=== PATIENT | female | born 1985 | race Two or more races ===

== ENCOUNTER 2025-10-03 13:22 | Emergency (ER) | payer MEDICAID, SELFPAY ==
[2025-10-03 13:24] VITALS: BMI 35.9
[2025-10-03 13:35] VITALS: BP 170/99; PULSE 88; RESP 18; TEMP 36.9; O2SAT 98
--- NOTE | 2025-10-03 13:35 | XR_ITS ---
Examination: Complete OB ultrasound, less than 14 weeks, transabdominal Date and time of exam: October 03, 2025, 1357 hours INDICATIONS: Headaches today, diagnosis given by physician vaginal bleeding Technique: Obstetrical ultrasound images less than 14 weeks performed via transabdominal imaging Findings: Uterus 8.6 cm, intrauterine gestational sac 1.2 cm corresponds to 6 weeks 0 days gestational age No pole, no cardiac activity 9 x 5 x 8 mm subchorionic hemorrhage Right ovary 3.2 cm arterial flow Left ovary 2.7 cm arterial flow IMPRESSION: Empty intrauterine gestational sac corresponding to 6 weeks 0 days gestational age, no pole, no cardiac activity Recommend short-term follow-up pelvic sonography to exclude embryonic demise
--- NOTE | 2025-10-03 13:35 | EKG_ITS ---
[facility] Test Date: 2025-10-03 Pat Name: KAVIN GUADARRAMA Department: Room: - Gender: Female [employer] Manifest Clerk: : 1985 Requested By: Anival Gonzalez Order Number: [id number] Reading MD: Anival Gonzalez Measurements Intervals [place] Rate: 87 P: 53 SD: 126 QRS: 50 QRSD: 79 T: 45 QT: 363 QTc: 438 Interpretive Statements SINUS RHYTHM No previous ECG available for comparison /store/S0/[id number]/ecg/[id number].pdf
--- NOTE | 2025-10-03 13:36 | PD.EDRME ---
Rapid Medical Screening Exam RME Arrival date/time: 10/03/25 13:22 39-year-old female with a history of type 2 diabetes, hypertension presents to the emergency room with a chief complaint of palpitations, weakness. Patient was sent by her clinic for high blood pressure and high blood sugar readings I have greeted and performed a focused initial assessment of this patient. A comprehensive ED assessment and evaluation of the patient, analysis of all test results, and completion of the medical decision making process will be conducted by additional ED providers. Chief Complaint: General Adult/Misc Complain Time Seen by Provider: 10/03/25 13:31 Vital signs reviewed by provider: Yes Exam: Patient has tenderness to the lower abdominal area Patient has a strong and regular rhythm S1 and S2 noted Clinical Impression: Spontaneous /incomplete /vaginal bleeding/
[2025-10-03 14:12] LABS: Collection Type, Urine Clean Catch
[2025-10-03 14:18] LABS: Basophils # (Auto) 0.0 Thou/mm3 (0.0-0.2); Basophils % (Auto) 0 % (0-2.5); Eosinophils # (Auto) 0.1 Thou/mm3 (0.0-0.5); Eosinophils % (Auto) 1 % (0-10); Hematocrit 39.9 % (36.0-46.0); Hemoglobin 13.2 g/dL (12.0-16.0); Immature Granulocytes Auto 0.04 Thou/mm3 (0.00-0.00); Lymphocytes # (Auto) 1.6 Thou/mm3 (1.0-4.8); Lymphocytes % (Auto) 13 % (10-50); Mean Corpuscular HGB Conc 33.1 g/dl (31.0-37.0); Mean Corpuscular Hemoglobin 27.6 pg (25.0-35.0); Mean Corpuscular Volume 84 fL (80-100); Monocytes # (Auto) 0.7 Thou/mm3 (0.0-0.8); Monocytes % (Auto) 6 % (0-12); Neutrophils # (Auto) 9.4 Thou/mm3 (1.8-7.7); Neutrophils % (Auto) 80 % (37-80); Nucleated Red Blood Cell # 0.00 Thou/mm3 (0.00-0.00); Nucleated Red Blood Cell % 0 /100 WBC (0); Platelet Count 274 Thou/mm3 (140-440); RDW Standard Deviation 42.7 fL (36.4-46.3); Red Blood Count 4.78 Miln/mm3 (4.00-5.20); White Blood Count 11.7 Thou/mm3 (3.6-11.0)
[2025-10-03 14:22] LABS: Bilirubin,Urine Negative (Negative); Blood,Urine Negative (Negative); Clarity,Urine Clear (Clear/Hazy); Color,Urine Lt-Yellow (Lt Yel-Yel); Glucose, Urine 3+ (Negative); Ketones,Urine Negative (Negative); Leukocyte Esterase,Urine Negative (Negative); Nitrite,Urine Negative (Negative); PH,Urine 6.0 (5.0-7.0); Protein,Urine Negative (Neg - Trace); RBC,Urine 2 /hpf (0-3); Specific Gravity,Urine 1.017 (1.001-1.035); Squamous Epithelial Cell,Urine < 1 /hpf (0-5); Urobilinogen,Urine Negative mg/dL (0.0-1.0); WBC,Urine < 1 /hpf (0-5)
[2025-10-03 14:29] LABS: INR 1.0 (0.9-1.3); Partial Thromboplastin Time 27.3 Seconds (22.0-36.0); Prothrombin Time 10.6 Seconds (9.0-12.2)
[2025-10-03 14:38] LABS: Alanine Aminotransferase 47 U/L (10-49); Albumin, Serum 4.7 gm/dL (3.5-5.0); Albumin/Globulin Ratio 1.9 (1.2-2.2); Alkaline Phosphatase 55 U/L (46-116); Anion Gap 9 (7-16); Aspartate Amino Transferase 20 U/L (0-34); BUN/Creatinine Ratio 15 Ratio (12-20); Bilirubin,Total 0.7 mg/dL (0.3-1.2); Blood Urea Nitrogen 9 mg/dL (9-23); Calcium 9.3 mg/dL (8.3-10.6); Calcium (Corrected) 9.3 mg/dL (8.5-10.1); Carbon Dioxide 23.2 mMol/L (20.0-31.0); Chloride 102 mMol/L (98-107); Creatinine (Component) 0.6 mg/dL (0.6-1.3); Estimated Creatinine Clearance 152.6 mL/min (>60); Globulin 2.5 gm/dL (2.3-3.5); Glucose 200 mg/dL (74-106); Magnesium 1.7 mg/dL (1.6-2.6); Osmolality,Calculated 272 (275-295); Potassium 3.8 mMol/L (3.4-5.1); Sodium 134 mMol/L (136-145); Total Protein 7.2 gm/dL (5.7-8.2); Troponin I < 0.002 ng/mL (0.0-0.045); eGFR > 60 See Note
[2025-10-03 15:01] LABS: B-Type Natriuretic Peptide < 20 pg/mL (0-100)
[2025-10-03 15:08] LABS: Beta HCG,Quantitative 14914 mIU/mL (<5.0)
[2025-10-03 15:45] VITALS: BP 156/95; PULSE 93; RESP 16; TEMP 36.9; O2SAT 98
--- NOTE | 2025-10-03 16:13 | EDNOTE_ITS ---
<Statement entered by Dia Thakkar MD - 10/03/25 17:57> As co-signing physician, I was present and available for consult prn. I concur with the plan and care as documented by the midlevel provider. ED General RME/HPI General Chief complaint: General Adult/Misc Complain Stated complaint: HIGH B/P AND HIGH BS, + PREG Time Seen by Provider: 10/03/25 13:31 Arrival date/time: 10/03/25 13:22 CC: Headache HPI ongoing today, the patient also states she was mildly lightheaded dizzy at work. The patient is a G3, P2 at estimated 6 weeks denies vaginal bleeding vaginal discharge lower abdominal cramping. No other complaints currently the patient is completely symptomatic free after her being assessed at this time approximately 1614. RME / HPI RME / HPI narrative: 10/03/25 13:22 39-year-old female with a history of type 2 diabetes, hypertension presents to the emergency room with a chief complaint of palpitations, weakness. Patient was sent by her clinic for high blood pressure and high blood sugar readings I have greeted and performed a focused initial assessment of this patient. A comprehensive ED assessment and evaluation of the patient, analysis of all test results, and completion of the medical decision making process will be conducted by additional ED providers. Exam: Patient has tenderness to the lower abdominal area Patient has a strong and regular rhythm S1 and S2 noted Impression: Spontaneous /incomplete /vaginal bleeding/ Related Data Home Medications ?Medication ?Instructions ?Recorded ?Confirmed aspirin 81 mg chewable tablet 81 mg PO QDAY 01/23/21 0 03/17/21 (Aspirin Childrens) insulin lispro 100 unit/mL 15 unit subcut TID 01/23/21 03/17/21 subcutaneous pen insulin lispro 100 unit/mL 35 unit subcut HS 01/23/21 03/18/21 subcutaneous pen labetalol 200 mg tablet 200 mg PO BID 01/23/2103/17 vitamin-ferrous fumarate 1 tab PO QDAY 03/17/21 28 mg iron-folic acid 800 mcg tablet ( Vitamins with Minerals) Previous Rx's ?Medication ?Instructions ?Recorded hydrocodone 5 mg-acetaminophen 325 1 tab PO Q8H PRN pa in #7 tabs 03/20/21 mg tablet ibuprofen 400 mg tablet 400 mg PO Q6H PRN pain #14 t abs 03/20/21 Allergies Allergy/AdvReac Type Severity Reaction Status Date / Time No Known Allergies Allergy Verified 10/03/25 13:27 Review of Systems Review of Systems Narrative Review of Systems: GEN: No fever, no chills, no weight loss EYES: No discharge, no visual changes, no pain HEENT: No ear pain, no congestion, no sore throat PULM: No shortness of breath, no cough, no congestion CV: No chest pain, no dyspnea on exertion, no palpitations GI: No nausea, no vomiting, no diarrhea, no pain, no constipation : No frequency, no urgency, no dysuria MUSC/SKEL: No joint pain, no back pain SKIN: No rash PSYCH: No hallucinations, no depression HEME/LYMPH: No easy bleeding or bruising tendencies NEURO: No weakness, no headache Past Medical History Past Medical History NEUROLOGIC: Negative Neurological Disorders or Seizures CARDIAC: Positive Cardiac Disorders and Hypertension; Negative Congestive Heart Failure RESPIRATORY: Negative Chronic Obstructive Pulmonary Disease (COPD) GASTROINTESTINAL: Negative Gastrointestinal Disorders or Hepatitis GENITOURINARY: Negative Genitourinary Disorders or Renal Disease MUSCULOSKELETAL: Negative Musculoskeletal Disorders ENDOCRINE: Positive Endocrine Disorders and Diabetes Mellitus Type 2; Negative Diabetes Mellitus Type 1 HEMATOLOGIC: Negative Blood Disorders OTHER HISTORY: Positive Hospitalization (FOR C/S) and Chicken Pox; Negative Autoimmune Disease, Down Syndrome, Developmental Delay, Shingles, Falls, Blood Transfusions, Blood Transfusion Reaction, Anesthesia Reactions, MRSA, VRSA, Vancomycin-Resistant Enterococci, Human Immunodeficiency Virus (HIV), Measles, Mumps, Rubella (Croatian Measles), Pertussis, Clostridium Difficile or Cancer Family History FAMILY HISTORY: Positive Family Cardiac Disorders (MOTHER-HTN, DM,) and Family Surgery (MATERNAL AUNT- RIGHT LEG SURGERY.); Negative Family Psychiatric Problems, Family Respiratory Disorders, Family Gastrointestinal Problems, Family Cancer or Family Anesthesia Reaction Surgical History SURGICAL: Positive Section (X1) Social History SMOKING STATUS: Never smoker ED Exam Narrative Physical exam: [General: Obese anxious but not in any acute distress Head normocephalic HEENT: Within acceptable limits Neck is supple nontender Chest equal chest rise nontender to palpation Respiratory: Clear to auscultation no wheezes crackles or rubs CV: Rate rhythm is regular no murmurs rubs or clicks Abdomen is distended secondary to body habitus soft nontender no masses positive bowel sounds all 4 quadrants Back: No CVA tenderness no spinous process tenderness from cervical spine thoracic and lumbar spine Skin: Intact no petechiae rash induration ulceration or crepitus Extremities: Moving all extremity against resistance cap refill less than 2 seconds neurosensory intact Neuro: Awake alert oriented x3 Glascow coma 15 no focal deficits] Course Course Course Narrative: Patient is advised in 1 week to return for quantitative hCG and ultrasound repeat. If the patient has heavy vaginal bleeding with cramping and low back pain to return sooner. Quality Measures none Orders Category Date Time Status EKG (ED ONLY) *Do not use* NOW Care 10/03/25 13:35 Completed EKG (ED Only) Stat Exams 10/03/25 13:35 Draft US OB <= 14 weeks fetus Stat Exams 10/03/25 13:35 Completed ABO/RH Type Stat Lab 10/03/25 13:45 Completed B-Type Natriuretic Peptide Stat Lab 10/03/25 13:45 Completed Beta HCG,Quantitative Stat Lab 10/03/25 13:45 Completed CBC Stat Lab 10/03/25 13:45 Completed CMP [Comprehensive Metabolic Panel] Stat Lab 10/03/25 13:45 Completed Magnesium Stat Lab 10/03/25 13:45 Completed Partial Thromboplastin Time Stat Lab 10/03/25 13:45 Completed Prothrombin Time with INR Stat Lab 10/03/25 13:45 Completed Troponin I Stat Lab 10/03/25 13:45 Completed UA [Urinalysis] Stat Lab 10/03/25 13:55 Completed Vital Signs Vital signs: Vital Signs Temperature 98.5 F 10/03/25 13:35 Pulse Rate 88 10/03/25 13:35 Respiratory Rate 18 10/03/25 13:35 Blood Pressure 170/99 H 10/03/25 13:35 Pulse Oximetry (%) 98 10/03/25 13:35 Oxygen Delivery Method Room Air 10/03/25 13:35 Discharge Plan Plan Patient Disposition: HOME (Self Care) Patient condition on transfer: Stable Prescriptions/Referrals Prescriptions/Med Rec: No Action labetalol 200 mg Tablet 200 mg PO BID vit-iron fum-folic ac [ Vitamin with Minerals] 28 mg iron- 800 mcg Tablet 1 tab PO QDAY aspirin [Aspirin Childrens] 81 mg Tablet,Chewable 81 mg PO QDAY insulin lispro 100 unit/mL Insulin Pen 35 unit SUBCUT HS insulin lispro 100 unit/mL Insulin Pen 15 unit SUBCUT TID Rx Instructions: TAKE BEFORE MEALS hydrocodone-acetaminophen 5-325 mg tablet 1 tab PO Q8H MDD 4 PRN (Reason: pain) Qty: 7 0RF ibuprofen 400 mg tablet 400 mg PO Q6H MDD 6 PRN (Reason: pain) Qty: 14 0RF Referrals: Ryan Fuentes MD [Physician, Family Practice] - In 1 week No Primary/Family,Physician [Primary Care Provider] - In 1 week Problem List Clinical Impression: Threatened miscarriage, Hyperglycemia due to diabetes mellitus Patient/Caregiver Discharge Instructions Other Activity Instructions:: Follow-up in 1 week for ultrasound and quantitative hCG. Please work on managing your blood sugars better. Avoid all sweets and carbohydrates. Education Materials: High Blood Sugar (Hyperglycemia), ED Possible Miscarriage ... Additional Instructions: Take ibuprofen for headaches, follow-up with your [facility] Print Language: Guatemalan Stand Alone Forms: [employer] Award Info., Work/School Release, Patient Portal Info Letter PA/SCRIPT GIRL Supervising Physician PA/SCRIPT GIRL Supervising Physician: Pop Rose ENP MDM Clinical Information Provided by: patient Medical Records reviewed [facility] Meds/Rx considered, not ordered None Labs/Rad/Tests considered, not ordered None Chronic Illness/Social Conditions Explain: Diabetes EKG Interpretation EKG #1: EKG Interpretation: EKG performed at 1336 shows a ventricular rate of 87 [place] interval 126 QRS of 79 QTc of 408 this is sinus rhythm. Labs Labs: interpreted by ca Lab(s) Interpretation(s): CBC shows mild leukocytosis 11.7 no anemia thrombocytopenia Coags within acceptable parameters. CMP shows sodium 134 glucose of 200 no other electrolyte imbalances renal impairment transaminitis or T. bili elevation Beta hCG is 14,914 Urine shows 3+ glucose no other signs of infection ABO Rh is a positive Imaging Imaging interpretation: interpreted by me Imaging Interpretation(s): Ultrasound shows that the patient has 6-week 0-day with no heart tones. Medication Administration(s) none Diagnosis Differential Diagnosis ED Complaint MDM: SAB early hyperglycemia
== END 2025-10-03 17:13 | disposition home or self-care (01) ==
PROVIDERS: Nurse Practitioner Family; Emergency Provider Emergency Medicine
DX: O03.4 Incomplete spontaneous abortion without complication (principal)
CPT/HCPCS: 36415; 76801; 80053; 81001; 83735; 83880; 84484; 84702; 85025; 85610; 85730; 86900; 86901; 93005; 99283

== ENCOUNTER 2025-10-10 09:02 | Emergency (ER) | payer MEDICAID, SELFPAY ==
[2025-10-10 09:12] VITALS: BP 149/73; PULSE 81; RESP 16; TEMP 36.8; O2SAT 98; BMI 34.6
--- NOTE | 2025-10-10 09:15 | XR_ITS ---
Examination: OB Transvaginal ultrasound of the pelvis, complete Technique: Transvaginal sonographic images pelvis performed using peña scale imaging Exam date and time: October 10, 2025, 11:11 a.m. INDICATIONS: Ultrasound October 03, 2025 empty intrauterine gestational sac FINDINGS: Uterus 9.3 cm Intrauterine gestation pole 0.3 cm corresponds to 5 weeks 6 days gestational age No cardiac motion Subchorionic hemorrhage 6 x 4 mm Right ovary 2.9 cm arterial flow Left ovary 2.6 cm arterial flow No fluid in the cul-de-sac IMPRESSION: Intrauterine gestation corresponding to 5 weeks 6 days gestational age No cardiac motion Continued short-term follow-up transvaginal pelvic sonography recommended to document viability.
--- NOTE | 2025-10-10 09:18 | PD.EDPREG ---
ED OB Contraction Preg RMI/HPI General Chief complaint: General Adult/Misc Complain Stated complaint: 6WKS, REPEAT US Time Seen by Provider: 10/10/25 09:10 Source: patient Arrival date/time: 10/10/25 09:02 39-year-old female with a history of type 2 diabetes presents to the emergency room for repeat OB ultrasound. Patient was seen at her clinic 6 weeks and told to come to the emergency room at 7 weeks for transvaginal ultrasound to confirm viability. Patient denies any vaginal bleeding or abdominal pain or cramping. Mode of arrival: ambulatory Limitations: no limitations Related Data Home Medications ?Medication ?Instructions ?Recorded ?Confirmed aspirin 81 mg chewable tablet 81 mg PO QDAY 01/23/21 03/17/21 (Aspirin Childrens) insulin lispro 100 unit/mL 15 unit subcut TID 01/23/21 03/17/21 subcutaneous pen insulin lispro 100 unit/mL 35 unit subcut HS 01/23/21 03/18/21 subcutaneous pen labetalol 200 mg tablet 200 mg PO BID 01/23/21 03/17/21 vitamin-ferrous fumarate 1 tab PO QDAY 01/23/21 03/17/21 28 mg iron-folic acid 800 mcg tablet ( Vitamins with Minerals) Previous Rx's ?Medication ?Instructions ?Recorded hydrocodone 5 mg-acetaminophen 325 1 tab PO Q8H PRN pain #7 tabs 03/20/21 mg tablet ibuprofen 400 mg tablet 400 mg PO Q6H PRN pain #14 tabs 03/20/21 Allergies Allergy/AdvReac Type Severity Reaction Status Date / Time No Known Allergies Allergy Verified 10/03/25 13:27 Review of Systems Review of Systems Systems Reviewed: All systems reviewed, normal except as documented Constitutional Constitutional: Reports system reviewed and no additional complaints, except as documented, Denies fatigue, Denies fever(s), Denies headache(s) and Denies weakness Eyes Eyes: Reports system reviewed and no additional complaints, except as documented, Denies blurry vision and Denies change in vision ENT Ears, Nose, Mouth, and Throat: Reports system reviewed and no additional complaints, except as documented, Denies otalgia, Denies headache(s), Denies nasal congestion, Denies throat swelling and Denies vertigo Cardiovascular Cardiovascular: Reports system reviewed and no additional complaints, except as documented, Denies chest pain, Denies dyspnea and Denies dyspnea on exertion Respiratory Respiratory: Reports system reviewed and no additional complaints, except as documented, Denies chest congestion, Denies cough, Denies dyspnea, Denies dyspnea on exertion and Denies wheezing Gastrointestinal Gastrointestinal: Reports system reviewed and no additional complaints, except as documented, Denies abdominal pain, Denies cramping, Denies nausea and Denies vomiting Genitourinary Genitourinary: Reports system reviewed and no additional complaints, except as documented Musculoskeletal Musculoskeletal: Reports system reviewed and no additional complaints, except as documented and Denies back pain Integumentary/Breasts Skin/Breast: Reports system reviewed and no additional complaints, except as documented and Denies wounds Neurologic Neurologic: Reports system reviewed and no additional complaints, except as documented, Denies confusion, Denies headache(s), Denies lack of coordination, Denies vertigo and Denies weakness Psychiatric Psychiatric: Reports system reviewed and no additional complaints, except as documented, Denies anxiety, Denies confusion, Denies depression, Denies paranoia, Denies suicidal ideation and Denies tactile hallucinations Endocrine Endocrine: Reports system reviewed and no additional complaints, except as documented and Denies fatigue Hematologic/Lymphatic Hematologic/Lymphatic: Reports system reviewed and no additional complaints, except as documented and Denies lymphadenopathy Allergic/Immunologic Allergic/Immunologic: Reports system reviewed and no additional complaints, except as documented, Denies throat swelling, Denies urticaria and Denies wheezing ED Exam General Limitations: Present no limitations General appearance: Present alert and in no apparent distress Head Head exam: Present atraumatic Eye Eye exam: Present normal appearance, PERRL and EOMI ENT ENT exam: Present normal exam, normal oropharynx and mucous membranes moist Neck Neck exam: Present normal inspection, full ROM and trachea midline Chest Chest inspection: Present normal inspection and symmetric chest wall rise Respiratory Respiratory exam: Present normal lung sounds bilaterally Cardiovascular Cardiovascular exam: Present regular rate, normal rhythm and normal heart sounds Abdominal Exam Abdominal exam: Present soft and normal bowel sounds; Absent distention, tenderness, guarding, rebound or rigidity Extremities Exam Extremities exam: Present normal inspection and full ROM Back Exam Back exam: Present normal inspection and full ROM Neurological Exam Neurological exam: Present alert, oriented X3 and CN II-XII intact Psychiatric Psychiatric exam: Present normal affect and normal mood Skin Skin exam: Present warm, dry, intact and normal color Course Quality Measures none Orders Category Date Time Status US OB transvaginal Stat Exams 10/10/25 09:15 Completed ABO/RH Type Stat Lab 10/10/25 09:30 Completed Beta HCG,Quantitative Stat Lab 10/10/25 09:30 Completed CBC Stat Lab 10/10/25 09:30 Completed CMP [Comprehensive Metabolic Panel] Stat Lab 10/10/25 09:30 Completed UA [Urinalysis] Stat Lab 10/10/25 09:56 Completed Vital Signs Vital signs: Vital Signs Temperature 98.2 F 10/10/25 09:12 Pulse Rate 81 10/10/25 09:12 Respiratory Rate 16 10/10/25 09:12 Blood Pressure 149/73 H 10/10/25 09:12 Pulse Oximetry (%) 98 10/10/25 09:12 Oxygen Delivery Method Room Air 10/10/25 09:12 OB/Uterine Contractions MDM Narrative MDM Narrative:: 39-year-old female with a history of type 2 diabetes presents to the emergency room for repeat OB ultrasound. Patient was seen at her clinic 6 weeks and told to come to the emergency room at 7 weeks for transvaginal ultrasound to confirm viability. Patient denies any vaginal bleeding or abdominal pain or cramping. Patient is hemodynamically stable and in no apparent distress Physical examination shows a soft nontender abdomen. The patient denies any vaginal bleeding or any abdominal pain or cramping Ultrasound OB shows an intrauterine gestation corresponding to 5 weeks and 6 days and age. There is currently no cardiac motion. Patient states she is levels are at 12,523. Radiologist recommends short-term follow-up to assess for any viability Patient was discharged and educated to follow-up with primary care provider in the next 24 to 48 hours and return to the emergency room for any evidence of worsening signs or symptoms Patient data External records reviewed:: [facility] previous records Clinical information provided by:: patient Social determinants that could affect healthcare access:: none Patient has the following chronic illnesses:: Type 2 diabetes How is presenting disease/condition affected by chronic disease/condition?: uneffected by Evaluation data The following diagnostics were reviewed and interpreted by me:: lab results and radiology exam(s) Lab and/or radiology exams considered but not ordered:: Labs and radiology exams considered and ordered Interpretation Summary: Transvaginal OB ultrasound-FINDINGS: Uterus 9.3 cm Intrauterine gestation pole 0.3 cm corresponds to 5 weeks 6 days gestational age No cardiac motion Subchorionic hemorrhage 6 x 4 mm Right ovary 2.9 cm arterial flow Left ovary 2.6 cm arterial flow No fluid in the cul-de-sac IMPRESSION: Intrauterine gestation corresponding to 5 weeks 6 days gestational age No cardiac motion Continued short-term follow-up transvaginal pelvic sonography recommended to document viability. Medications / Prescriptions Medications or Prescriptions considered but not ordered:: Medication given Medication administrations:: No medication given Consultations Consultation(s) initiated? (list below): No Diagnosis OB Contractions Differential Diagnosis: other (Threatened miscarriage/) Most likely diagnosis given after review of the tests above:: Threatened miscarriage Admission Indicated Admission indicated?: not indicated Explain why admission is indicated or not indicated:: N/A Admission Request Was there a request for admission?: No Disposition Plan Disposition Plan: Discharge Discharge Attestation Discharge Attestation: The patient and all family members were given an opportunity to ask questions and understood the discharge instructions. Discharge instructions specifically effects, indications for sooner follow up or return to the emergency department, and the expected course of current diagnosis. Patient condition: Stable Discharge Plan Plan Patient Disposition: HOME (Self Care) Discharge Disposition comment: Stable Prescriptions/Referrals Prescriptions/Med Rec: No Action labetalol 200 mg Tablet 200 mg PO BID vit-iron fum-folic ac [ Vitamin with Minerals] 28 mg iron- 800 mcg Tablet 1 tab PO QDAY aspirin [Aspirin Childrens] 81 mg Tablet,Chewable 81 mg PO QDAY insulin lispro 100 unit/mL Insulin Pen 35 unit SUBCUT HS insulin lispro 100 unit/mL Insulin Pen 15 unit SUBCUT TID Rx Instructions: TAKE BEFORE MEALS hydrocodone-acetaminophen 5-325 mg tablet 1 tab PO Q8H MDD 4 PRN (Reason: pain) Qty: 7 0RF ibuprofen 400 mg tablet 400 mg PO Q6H MDD 6 PRN (Reason: pain) Qty: 14 0RF Referrals: Ryan Fuentes MD [Primary Care Provider, Family Practice] - In 1 week Problem List Clinical Impression: Patient/Caregiver Discharge Instructions Education Materials: First Trimester Additional Instructions: Por favor, acuda a fields ginec?logo/obstetra en las pr?ximas 24 a 48 horas. En otf momento, la ecograf?a a?n no muestra actividad card?junaid. Ryanne niveles de hCG son de 12,523. Hay mitzy venus?a hemorragia subcori?kylee. Si presenta alg?n empeoramiento de los signos o s?ntomas, regrese a urgencias de inmediato. Print Language: Kazakh Stand Alone Forms: [employer] Award Info., Work/School Release, Patient Portal Info Letter PA/GOLDSMITH APPRENTICE Supervising Physician PA/GOLDSMITH APPRENTICE Supervising Physician: Dr. Sheffield
[2025-10-10 09:59] LABS: Basophils # (Auto) 0.0 Thou/mm3 (0.0-0.2); Basophils % (Auto) 0 % (0-2.5); Eosinophils # (Auto) 0.1 Thou/mm3 (0.0-0.5); Eosinophils % (Auto) 1 % (0-10); Hematocrit 37.6 % (36.0-46.0); Hemoglobin 12.5 g/dL (12.0-16.0); Immature Granulocytes Auto 0.04 Thou/mm3 (0.00-0.00); Lymphocytes # (Auto) 2.1 Thou/mm3 (1.0-4.8); Lymphocytes % (Auto) 22 % (10-50); Mean Corpuscular HGB Conc 33.2 g/dl (31.0-37.0); Mean Corpuscular Hemoglobin 28.1 pg (25.0-35.0); Mean Corpuscular Volume 85 fL (80-100); Monocytes # (Auto) 0.7 Thou/mm3 (0.0-0.8); Monocytes % (Auto) 7 % (0-12); Neutrophils # (Auto) 6.5 Thou/mm3 (1.8-7.7); Neutrophils % (Auto) 69 % (37-80); Nucleated Red Blood Cell # 0.00 Thou/mm3 (0.00-0.00); Nucleated Red Blood Cell % 0 /100 WBC (0); Platelet Count 266 Thou/mm3 (140-440); RDW Standard Deviation 44.0 fL (36.4-46.3); Red Blood Count 4.45 Miln/mm3 (4.00-5.20); White Blood Count 9.5 Thou/mm3 (3.6-11.0)
[2025-10-10 10:11] LABS: Collection Type, Urine Clean Catch; RBC,Urine 0 /hpf (0-3); WBC,Urine 0 /hpf (0-5)
[2025-10-10 10:18] LABS: Alanine Aminotransferase 52 U/L (10-49); Albumin, Serum 4.5 gm/dL (3.5-5.0); Albumin/Globulin Ratio 1.8 (1.2-2.2); Alkaline Phosphatase 50 U/L (46-116); Anion Gap 7 (7-16); Aspartate Amino Transferase 26 U/L (0-34); BUN/Creatinine Ratio 13 Ratio (12-20); Bilirubin,Total 0.6 mg/dL (0.3-1.2); Blood Urea Nitrogen 8 mg/dL (9-23); Calcium 9.5 mg/dL (8.3-10.6); Calcium (Corrected) 9.5 mg/dL (8.5-10.1); Carbon Dioxide 25.2 mMol/L (20.0-31.0); Chloride 104 mMol/L (98-107); Creatinine (Component) 0.6 mg/dL (0.6-1.3); Estimated Creatinine Clearance 154.7 mL/min (>60); Globulin 2.5 gm/dL (2.3-3.5); Glucose 218 mg/dL (74-106); Osmolality,Calculated 277 (275-295); Potassium 4.2 mMol/L (3.4-5.1); Sodium 136 mMol/L (136-145); Total Protein 7.0 gm/dL (5.7-8.2); eGFR > 60 See Note
[2025-10-10 10:37] LABS: Bacteria,Urine Rare; Bilirubin,Urine Negative (Negative); Blood,Urine Negative (Negative); Clarity,Urine Clear (Clear/Hazy); Color,Urine Colorless (Lt Yel-Yel); Glucose, Urine Negative (Negative); Ketones,Urine Negative (Negative); Leukocyte Esterase,Urine Negative (Negative); Nitrite,Urine Negative (Negative); PH,Urine 6.5 (5.0-7.0); Protein,Urine Negative (Neg - Trace); Specific Gravity,Urine 1.004 (1.001-1.035); Squamous Epithelial Cell,Urine < 1 /hpf (0-5); Urobilinogen,Urine Negative mg/dL (0.0-1.0)
[2025-10-10 10:46] LABS: Beta HCG,Quantitative 12523 mIU/mL (<5.0)
== END 2025-10-10 13:36 | disposition home or self-care (01) ==
PROVIDERS: Nurse Practitioner Family; Emergency Provider Emergency Medicine; PCP Family Medicine
DX: O03.9 Complete or unspecified spontaneous abortion without complication (principal); O24.111 Pre-existing type 2 diabetes mellitus, in pregnancy, first trimester; Z3A.01 Less than 8 weeks gestation of pregnancy; Z79.4 Long term (current) use of insulin
CPT/HCPCS: 36415; 76817; 80053; 81001; 84702; 85025; 86900; 86901; 99283

== ENCOUNTER 2025-10-12 05:47 | Emergency (ER) | payer MEDICAID, SELFPAY ==
[2025-10-12 05:55] VITALS: BP 172/84; PULSE 85; RESP 18; TEMP 37.3; O2SAT 97; BMI 34.2
--- NOTE | 2025-10-12 06:19 | XR_ITS ---
Examination: OB Transvaginal ultrasound of the pelvis, complete Technique: Transvaginal sonographic images pelvis performed using peña scale imaging Exam date and time: October 12, 2025, 0739 hours INDICATIONS: Vaginal bleeding and pelvic cramping this week, pelvic sonogram October 10, 2025 intrauterine gestation corresponding to 5 weeks 6 days gestational age no cardiac motion FINDINGS: Uterus 9.2 cm, CRL 0.4 cm corresponds to 6 weeks 0 days gestational age No cardiac motion Adjacent subchorionic hemorrhages 21 x 8 x 26 mm Right ovary 2.0 cm arterial flow Left ovary obscured by bowel gas IMPRESSION: Intrauterine gestation corresponding to 6 weeks 0 days gestational age However, no cardiac motion Recommend continued follow-up ultrasound to exclude demise.
--- NOTE | 2025-10-12 06:47 | EDNOTE_ITS ---
ED OB Contraction Preg RMI/HPI General Chief complaint: Vaginal Bleeding Stated complaint: VAGINAL BLEEDING Time Seen by Provider: 10/12/25 06:18 Arrival date/time: 10/12/25 05:47 39-year-old female presents to the emergency department today for complaints of vaginal spotting and cramping this is the patient's third visit to the ER patient was seen on the as well as the Limitations: no limitations Related Data Home Medications ?Medication ?Instructions ?Recorded ?Confirmed aspirin 81 mg chewable tablet 81 mg PO QDAY 01/23/21 0 03/17/21 (Aspirin Childrens) insulin lispro 100 unit/mL 15 unit subcut TID 01/23/21 03/17/21 subcutaneous pen insulin lispro 100 unit/mL 35 unit subcut HS 01/23/21 03/18/21 subcutaneous pen labetalol 200 mg tablet 200 mg PO BID 01/23/2103/17 vitamin-ferrous fumarate 1 tab PO QDAY 03/17/21 28 mg iron-folic acid 800 mcg tablet ( Vitamins with Minerals) Previous Rx's ?Medication ?Instructions ?Recorded hydrocodone 5 mg-acetaminophen 325 1 tab PO Q8H PRN pa in #7 tabs 03/20/21 mg tablet ibuprofen 400 mg tablet 400 mg PO Q6H PRN pain #14 t abs 03/20/21 Allergies Allergy/AdvReac Type Severity Reaction Status Date / Time No Known Allergies Allergy Verified 10/12/25 05:48 Review of Systems Review of Systems Systems Reviewed: All systems reviewed, normal except as documented Constitutional Constitutional: Reports system reviewed and no additional complaints, except as documented, Denies fever(s) and Denies headache(s) Eyes Eyes: Reports system reviewed and no additional complaints, except as documented and Denies blurry vision ENT Ears, Nose, Mouth, and Throat: Reports system reviewed and no additional complaints, except as documented, Denies headache(s), Denies nasal congestion and Denies nasal discharge Cardiovascular Cardiovascular: Reports system reviewed and no additional complaints, except as documented, Denies chest pain and Denies dyspnea Respiratory Respiratory: Reports system reviewed and no additional complaints, except as documented, Denies chest congestion, Denies cough and Denies dyspnea Gastrointestinal Gastrointestinal: Reports system reviewed and no additional complaints, except as documented and Denies abdominal pain Genitourinary Genitourinary: Reports system reviewed and no additional complaints, except as documented, Reports abnormal vaginal bleeding and Reports pelvic pain Integumentary/Breasts Skin/Breast: Reports system reviewed and no additional complaints, except as documented and Denies rash Neurologic Neurologic: Reports system reviewed and no additional complaints, except as documented, Reports as per HPI and Denies headache(s) Past Medical History Past Medical History NEUROLOGIC: Negative Neurological Disorders or Seizures CARDIAC: Positive Cardiac Disorders and Hypertension; Negative Congestive Heart Failure RESPIRATORY: Negative Chronic Obstructive Pulmonary Disease (COPD) GASTROINTESTINAL: Negative Gastrointestinal Disorders or Hepatitis GENITOURINARY: Negative Genitourinary Disorders or Renal Disease MUSCULOSKELETAL: Negative Musculoskeletal Disorders ENDOCRINE: Positive Endocrine Disorders and Diabetes Mellitus Type 2; Negative Diabetes Mellitus Type 1 HEMATOLOGIC: Negative Blood Disorders OTHER HISTORY: Positive Hospitalization (FOR C/S) and Chicken Pox; Negative Autoimmune Disease, Down Syndrome, Developmental Delay, Shingles, Falls, Blood Transfusions, Blood Transfusion Reaction, Anesthesia Reactions, MRSA, VRSA, Vancomycin-Resistant Enterococci, Human Immunodeficiency Virus (HIV), Measles, Mumps, Rubella ([place] Measles), Pertussis, Clostridium Difficile or Cancer Family History FAMILY HISTORY: Positive Family Cardiac Disorders (MOTHER-HTN, DM,) and Family Surgery (MATERNAL AUNT- RIGHT LEG SURGERY.); Negative Family Psychiatric Problems, Family Respiratory Disorders, Family Gastrointestinal Problems, Family Cancer or Family Anesthesia Reaction Surgical History SURGICAL: Positive Section (X1) Social History SMOKING STATUS: Never smoker ED Exam General Limitations: Present no limitations General appearance: Present alert and in no apparent distress Head Head exam: Present atraumatic, normocephalic and normal inspection Eye Eye exam: Present normal appearance, PERRL and EOMI; Absent conjunctival injection ENT ENT exam: Present normal exam, normal oropharynx and mucous membranes moist Neck Neck exam: Present normal inspection, full ROM and trachea midline Chest Chest inspection: Present normal inspection and symmetric chest wall rise Respiratory Respiratory exam: Present normal lung sounds bilaterally; Absent respiratory distress Cardiovascular Cardiovascular exam: Present regular rate, normal rhythm and normal heart sounds Abdominal Exam Abdominal exam: Present soft and normal bowel sounds; Absent distention, tenderness, guarding, rebound or rigidity Extremities Exam Extremities exam: Present normal inspection and full ROM Back Exam Back exam: Present normal inspection and full ROM Neurological Exam Neurological exam: Present alert, oriented X3 and CN II-XII intact Psychiatric Psychiatric exam: Present normal affect and normal mood Skin Skin exam: Present warm, dry, intact and normal color Course Quality Measures none Orders Category Date Time Status US OB transvaginal Stat Exams 10/12/25 06:19 Completed Beta HCG,Quantitative Stat Lab 10/12/25 06:54 Completed CBC Stat Lab 10/12/25 06:54 Completed Vital Signs Vital signs: Vital Signs Temperature 99.2 F 10/12/25 05:55 Pulse Rate 85 10/12/25 05:55 Respiratory Rate 18 10/12/25 05:55 Blood Pressure 172/84 H 10/12/25 05:55 Pulse Oximetry (%) 97 10/12/25 05:55 Oxygen Delivery Method Room Air 10/12/25 05:55 O2 saturation 97% room air within normal limits Vaginal Bleeding MDM Narrative MDM Narrative: 39-year-old female presents to the emergency department today for complaints of vaginal spotting and cramping this is the patient's third visit to the ER patient was seen on the as well as the Clinically patient well-appearing does not appear ill or toxic no acute distress Lab work and imaging obtained I did review the patient's previous ultrasounds as well as lab work Patient has a downward trending hCG from the to the and patient initially in the 10th was measuring 6 weeks with no heart tones in the th the reading showed that the patient was approximately 5 weeks and 6 days Based on the patient's hCG today as well as imaging patient appears to have a missed Patient data External records reviewed:: [facility] previous records Clinical information provided by:: patient Social determinants that could affect healthcare access:: none Patient has the following chronic illnesses:: See history How is presenting disease/condition affected by chronic disease/condition?: uneffected by Evaluation data The following diagnostics were reviewed and interpreted by me:: lab results and radiology exam(s) Lab and/or radiology exams considered but not ordered:: Labs radiology obtained Interpretation Summary: Reviewed by me Medications / Prescriptions Medications or Prescriptions considered but not ordered:: No meds Medication administrations:: No meds Consultations Consultation(s) initiated? (list below): Yes Diagnosis Vaginal Bleeding Differential Diagnosis: missed and threatened Most likely diagnosis given after review of the tests above:: Missed Admission Indicated Admission indicated?: not indicated Admission Request Was there a request for admission?: No Disposition Plan Disposition Plan: Discharge Discharge Attestation Discharge Attestation: The patient and all family members were given an opportunity to ask questions and understood the discharge instructions. Discharge instructions specifically effects, indications for sooner follow up or return to the emergency department, and the expected course of current diagnosis. Patient condition: Stable Discharge Plan Plan Patient Disposition: HOME (Self Care) Discharge Disposition comment: Stable Prescriptions/Referrals Prescriptions/Med Rec: No Action labetalol 200 mg Tablet 200 mg PO BID vit-iron fum-folic ac [ Vitamin with Minerals] 28 mg iron- 800 mcg Tablet 1 tab PO QDAY aspirin [Aspirin Childrens] 81 mg Tablet,Chewable 81 mg PO QDAY insulin lispro 100 unit/mL Insulin Pen 35 unit SUBCUT HS insulin lispro 100 unit/mL Insulin Pen 15 unit SUBCUT TID Rx Instructions: TAKE BEFORE MEALS hydrocodone-acetaminophen 5-325 mg tablet 1 tab PO Q8H MDD 4 PRN (Reason: pain) Qty: 7 0RF ibuprofen 400 mg tablet 400 mg PO Q6H MDD 6 PRN (Reason: pain) Qty: 14 0RF Referrals: Ryan Fuentse MD [Primary Care Provider, Family Practice] - In 1 week Problem List Clinical Impression: Threatened Patient/Caregiver Discharge Instructions Education Materials: Understanding Miscarriage ... Additional Instructions: Please follow-up with [facility] in next 1 to 2 days for worsening symptoms return immediately I gave you a copy of your ultrasound reports please bring them to your [facility] Your hCG levels 10/03, 14,914 10/10 12,523 10/12 12,278 Print Language: Serbian Stand Alone Forms: Daina Award Info., Patient Portal Info Letter SHERIF/SARKIS Supervising Physician VINCENT Supervising Physician: dr liang
[2025-10-12 07:07] LABS: Basophils # (Auto) 0.0 Thou/mm3 (0.0-0.2); Basophils % (Auto) 0 % (0-2.5); Eosinophils # (Auto) 0.1 Thou/mm3 (0.0-0.5); Eosinophils % (Auto) 1 % (0-10); Hematocrit 42.1 % (36.0-46.0); Hemoglobin 13.8 g/dL (12.0-16.0); Immature Granulocytes Auto 0.05 Thou/mm3 (0.00-0.00); Lymphocytes # (Auto) 1.9 Thou/mm3 (1.0-4.8); Lymphocytes % (Auto) 17 % (10-50); Mean Corpuscular HGB Conc 32.8 g/dl (31.0-37.0); Mean Corpuscular Hemoglobin 27.5 pg (25.0-35.0); Mean Corpuscular Volume 84 fL (80-100); Monocytes # (Auto) 0.6 Thou/mm3 (0.0-0.8); Monocytes % (Auto) 6 % (0-12); Neutrophils # (Auto) 8.1 Thou/mm3 (1.8-7.7); Neutrophils % (Auto) 75 % (37-80); Nucleated Red Blood Cell # 0.00 Thou/mm3 (0.00-0.00); Nucleated Red Blood Cell % 0 /100 WBC (0); Platelet Count 301 Thou/mm3 (140-440); RDW Standard Deviation 44.0 fL (36.4-46.3); Red Blood Count 5.01 Miln/mm3 (4.00-5.20); White Blood Count 10.9 Thou/mm3 (3.6-11.0)
[2025-10-12 08:03] LABS: Beta HCG,Quantitative 12278 mIU/mL (<5.0)
== END 2025-10-12 09:18 | disposition home or self-care (01) ==
PROVIDERS: Nurse Practitioner Primary Care; Emergency Provider Family Medicine; PCP Family Medicine
DX: O03.9 Complete or unspecified spontaneous abortion without complication (principal); Z3A.08 8 weeks gestation of pregnancy
CPT/HCPCS: 36415; 76817; 84702; 85025; 99283

== ENCOUNTER 2025-10-20 23:18 | Emergency (ER) | payer MEDICAID, SELFPAY ==
[2025-10-20 23:19] VITALS: BMI 34.2
[2025-10-20 23:38] VITALS: BP 146/87; PULSE 83; RESP 18; TEMP 36.9; O2SAT 97
--- NOTE | 2025-10-20 23:47 | XR_ITS ---
Examination: OB Transvaginal ultrasound of the pelvis, complete Technique: Transvaginal sonographic images pelvis performed using peña scale imaging Exam date and time: October 21, 2025, 0223 hours INDICATIONS: Vaginal bleeding beginning 1 week ago, no cardiac motion on ultrasound examination October 12, 2025 FINDINGS: Empty intrauterine gestational sac with irregular margins, corresponding to 6 weeks 1 day gestational age No pole, no cardiac activity Subchorionic hemorrhage 13 x 7 mm Ovaries obscured by bowel gas IMPRESSION: Findings most consistent with embryonic demise Recommend continued short-term follow-up pelvic sonography.
--- NOTE | 2025-10-20 23:51 | PD.EDVAGBL ---
ED OB Contraction Preg RMI/HPI General Chief complaint: Vaginal Bleeding Stated complaint: 8 WKS PREG VAG BLEEDING ABD PAIN Time Seen by Provider: 10/20/25 23:47 Arrival date/time: 10/20/25 23:18 39F at approximately 8 weeks and with history of DM and HTN presents to ED with pelvic pain/cramping and vaginal bleeding. Patient was here about 10 days ago with similar complaints. 2 US showed IUP but no cardiac motion. In addition, Beta HCG remained the same within 2 days. Limitations: no limitations Related Data Home Medications ?Medication ?Instructions ?Recorded ?Confirmed aspirin 81 mg chewable tablet 81 mg PO QDAY 01/23/21 03/17/21 (Aspirin Childrens) insulin lispro 100 unit/mL 15 unit subcut TID 01/23/21 03/17/21 subcutaneous pen insulin lispro 100 unit/mL 35 unit subcut HS 01/23/21 03/18/21 subcutaneous pen labetalol 200 mg tablet 200 mg PO BID 01/23/21 03/17/21 vitamin-ferrous fumarate 1 tab PO QDAY 01/23/21 03/17/21 28 mg iron-folic acid 800 mcg tablet ( Vitamins with Minerals) Previous Rx's ?Medication ?Instructions ?Recorded hydrocodone 5 mg-acetaminophen 325 1 tab PO Q8H PRN pain #7 tabs 03/20/21 mg tablet ibuprofen 400 mg tablet 400 mg PO Q6H PRN pain #14 tabs 03/20/21 Allergies Allergy/AdvReac Type Severity Reaction Status Date / Time No Known Allergies Allergy Verified 10/20/25 23:23 Review of Systems Review of Systems Systems Reviewed: All systems reviewed, normal except as documented Genitourinary Genitourinary: Reports as per HPI, Reports abnormal vaginal bleeding and Reports pelvic pain Past Medical History Past Medical History NEUROLOGIC: Negative Neurological Disorders or Seizures CARDIAC: Positive Cardiac Disorders and Hypertension; Negative Congestive Heart Failure RESPIRATORY: Negative Chronic Obstructive Pulmonary Disease (COPD) GASTROINTESTINAL: Negative Gastrointestinal Disorders or Hepatitis GENITOURINARY: Negative Genitourinary Disorders or Renal Disease MUSCULOSKELETAL: Negative Musculoskeletal Disorders ENDOCRINE: Positive Endocrine Disorders and Diabetes Mellitus Type 2; Negative Diabetes Mellitus Type 1 HEMATOLOGIC: Negative Blood Disorders OTHER HISTORY: Positive Hospitalization (FOR C/S) and Chicken Pox; Negative Autoimmune Disease, Down Syndrome, Developmental Delay, Shingles, Falls, Blood Transfusions, Blood Transfusion Reaction, Anesthesia Reactions, MRSA, VRSA, Vancomycin-Resistant Enterococci, Human Immunodeficiency Virus (HIV), Measles, Mumps, Rubella ([place] Measles), Pertussis, Clostridium Difficile or Cancer Family History FAMILY HISTORY: Positive Family Cardiac Disorders (MOTHER-HTN, DM,) and Family Surgery (MATERNAL AUNT- RIGHT LEG SURGERY.); Negative Family Psychiatric Problems, Family Respiratory Disorders, Family Gastrointestinal Problems, Family Cancer or Family Anesthesia Reaction Surgical History SURGICAL: Positive Section (X1) Social History SMOKING STATUS: Never smoker ED Exam General Limitations: Present no limitations General appearance: Present alert and in no apparent distress Head Head exam: Present atraumatic Neck Neck exam: Present normal inspection, full ROM and trachea midline Chest Chest inspection: Present normal inspection and symmetric chest wall rise Neurological Exam Neurological exam: Present alert and oriented X3 Psychiatric Psychiatric exam: Present normal affect and normal mood Skin Skin exam: Present warm, dry, intact and normal color Course Quality Measures none Orders Category Date Time Status US OB transvaginal Stat Exams 10/20/25 23:47 Taken Beta HCG,Quantitative Stat Lab 10/20/25 00:14 Completed CBC Stat Lab 10/20/25 00:14 Completed CMP [Comprehensive Metabolic Panel] Stat Lab 10/20/25 00:14 Completed Vital Signs Vital signs: Vital Signs Temperature 98.4 F 10/20/25 23:38 Pulse Rate 83 10/20/25 23:38 Respiratory Rate 18 10/20/25 23:38 Blood Pressure 146/87 H 10/20/25 23:38 Pulse Oximetry (%) 97 10/20/25 23:38 Oxygen Delivery Method Room Air 10/20/25 23:38 O2 at 97% on RA and WNLs Vaginal Bleeding MDM Narrative MDM Narrative: 39F at approximately 8 weeks and with history of DM and HTN presents to ED with pelvic pain/cramping and vaginal bleeding. Patient was here about 10 days ago with similar complaints. 2 US showed IUP but no cardiac motion. In addition, Beta HCG remained the same within 2 days. Physical exam reveals anxious/crying female. Patient is afebrile and alert. Blood type is A+. US Telerad reveals abnormally shaped IUP with no pole. No gross anemia or leukocytosis. CMP Unremarkable. Beta much lower now at around 6k. Was 12k before. Likely incomplete miscarriage. Patient data External records reviewed:: [facility] previous records Clinical information provided by:: patient Social determinants that could affect healthcare access:: none Patient has the following chronic illnesses:: DM and HTN How is presenting disease/condition affected by chronic disease/condition?: exacerbated by Evaluation data The following diagnostics were reviewed and interpreted by me:: lab results and radiology exam(s) Lab and/or radiology exams considered but not ordered:: ordered Interpretation Summary: above Medications / Prescriptions Medications or Prescriptions considered but not ordered:: not ordered Medication administrations:: n/a Consultations Consultation(s) initiated? (list below): No Diagnosis Vaginal Bleeding Differential Diagnosis: missed , threatened , dysfunctional uterine bleeding, menometrorrhagia, incomplete , ectopic without intrauterine and vaginal bleeding Most likely diagnosis given after review of the tests above:: incomplete miscarriage Admission Indicated Admission indicated?: not indicated Admission Request Was there a request for admission?: No Disposition Plan Disposition Plan: Discharge Discharge Attestation Discharge Attestation: The patient and all family members were given an opportunity to ask questions and understood the discharge instructions. Discharge instructions specifically effects, indications for sooner follow up or return to the emergency department, and the expected course of current diagnosis. Patient condition: Stable Discharge Plan Plan Patient Disposition: HOME (Self Care) Discharge Disposition comment: Stable Prescriptions/Referrals Prescriptions/Med Rec: No Action labetalol 200 mg Tablet 200 mg PO BID vit-iron fum-folic ac [ Vitamin with Minerals] 28 mg iron- 800 mcg Tablet 1 tab PO QDAY aspirin [Aspirin Childrens] 81 mg Tablet,Chewable 81 mg PO QDAY insulin lispro 100 unit/mL Insulin Pen 35 unit SUBCUT HS insulin lispro 100 unit/mL Insulin Pen 15 unit SUBCUT TID Rx Instructions: TAKE BEFORE MEALS hydrocodone-acetaminophen 5-325 mg tablet 1 tab PO Q8H MDD 4 PRN (Reason: pain) Qty: 7 0RF ibuprofen 400 mg tablet 400 mg PO Q6H MDD 6 PRN (Reason: pain) Qty: 14 0RF Referrals: Ryan Fuentes MD [Primary Care Provider, Family Practice] - In 1 week Problem List Clinical Impression: Incomplete miscarriage Patient/Caregiver Discharge Instructions Education Materials: ED Miscarriage, Incomplete Additional Instructions: Please follow-up with [facility] within 24-48 hours and return immediately if symptoms worsen. Beta HCG 12k---> 6k. Print Language: Maori Stand Alone Forms: Patient Portal Info Letter PA/DIRECTOR [employer]VENUE Supervising Physician PA/DIRECTOR [employer]VENUE Supervising Physician: Dr. Sheffield
[2025-10-21 00:50] LABS: Basophils # (Auto) 0.0 Thou/mm3 (0.0-0.2); Basophils % (Auto) 0 % (0-2.5); Eosinophils # (Auto) 0.2 Thou/mm3 (0.0-0.5); Eosinophils % (Auto) 1 % (0-10); Hematocrit 39.6 % (36.0-46.0); Hemoglobin 13.0 g/dL (12.0-16.0); Immature Granulocytes Auto 0.03 Thou/mm3 (0.00-0.00); Lymphocytes # (Auto) 2.4 Thou/mm3 (1.0-4.8); Lymphocytes % (Auto) 23 % (10-50); Mean Corpuscular HGB Conc 32.8 g/dl (31.0-37.0); Mean Corpuscular Hemoglobin 28.0 pg (25.0-35.0); Mean Corpuscular Volume 85 fL (80-100); Monocytes # (Auto) 0.9 Thou/mm3 (0.0-0.8); Monocytes % (Auto) 8 % (0-12); Neutrophils # (Auto) 7.1 Thou/mm3 (1.8-7.7); Neutrophils % (Auto) 67 % (37-80); Nucleated Red Blood Cell # 0.00 Thou/mm3 (0.00-0.00); Nucleated Red Blood Cell % 0 /100 WBC (0); Platelet Count 265 Thou/mm3 (140-440); RDW Standard Deviation 44.5 fL (36.4-46.3); Red Blood Count 4.65 Miln/mm3 (4.00-5.20); White Blood Count 10.6 Thou/mm3 (3.6-11.0)
[2025-10-21 01:09] LABS: Alanine Aminotransferase 43 U/L (10-49); Albumin, Serum 5.0 gm/dL (3.5-5.0); Albumin/Globulin Ratio 2.1 (1.2-2.2); Alkaline Phosphatase 58 U/L (46-116); Anion Gap 9 (7-16); Aspartate Amino Transferase 33 U/L (0-34); BUN/Creatinine Ratio 13 Ratio (12-20); Bilirubin,Total 0.3 mg/dL (0.3-1.2); Blood Urea Nitrogen 13 mg/dL (9-23); Calcium 10.2 mg/dL (8.3-10.6); Calcium (Corrected) 10.2 mg/dL (8.5-10.1); Carbon Dioxide 27.6 mMol/L (20.0-31.0); Chloride 102 mMol/L (98-107); Creatinine (Component) 1.0 mg/dL (0.6-1.3); Estimated Creatinine Clearance 92.4 mL/min (>60); Globulin 2.4 gm/dL (2.3-3.5); Glucose 363 mg/dL (74-106); Osmolality,Calculated 292 (275-295); Potassium 4.1 mMol/L (3.4-5.1); Sodium 139 mMol/L (136-145); Total Protein 7.4 gm/dL (5.7-8.2); eGFR > 60 See Note
[2025-10-21 01:30] LABS: Beta HCG,Quantitative 6370 mIU/mL (<5.0)
[2025-10-21 02:53] VITALS: BP 135/86; PULSE 84; RESP 18; TEMP 36.7; O2SAT 98
--- NOTE | 2025-10-21 05:25 | PRELIM_ITS ---
Pelvic ultrasound (transvaginal) with Doppler and wave Doppler spectral analysis. October 21, 2025 at 0223 hours Clinical history: Pain/bleeding; 8 weeks. Technique: Real-time, grayscale, transvaginal pelvic ultrasound was performed using Duplex scanning including arterial inflow, venous outflow, color and spectral Doppler. Comparison: None available at the time of this report. Findings: Irregular shaped gestational sac noted without pole, corresponding to a gestational age of 6 weeks and 1 day. The yolk sac is not visualized. Subchorionic hemorrhage measuring 1.3 x 0.6 x 0.7 cm. The uterus is normal in size measuring 9.9 x 5.3 x 6.6 cm, scar noted. The ovaries were not visualized. No abnormalities by Doppler. There is no adnexal mass. There is no free fluid on the submitted images. Impression: Irregularly shaped gestational sac without pole corresponding to a gestational age of 6 weeks and 1 day. Please, correlate clinically. Subchorionic hemorrhage. Please, correlate clinically. Consider short-term follow-up. Report Electronically Signed By: John Price 10/21/2025 5:25:01 AM [EST]
[2025-10-21 05:36] VITALS: BP 154/83; PULSE 74; RESP 16; TEMP 37.2; O2SAT 97
== END 2025-10-21 05:40 | disposition home or self-care (01) ==
PROVIDERS: Physician Assistant; Emergency Provider Emergency Medicine; PCP Family Medicine
DX: O03.4 Incomplete spontaneous abortion without complication (principal)
CPT/HCPCS: 36415; 76817; 80053; 84702; 85025; 99283

== ENCOUNTER 2025-10-24 19:35 | Emergency (ER) | payer MEDICAID, SELFPAY ==
[2025-10-24 20:26] VITALS: BP 173/98; PULSE 90; RESP 18; TEMP 36.7; O2SAT 99; BMI 26.6
--- NOTE | 2025-10-24 20:31 | XR_ITS ---
Examination: Complete OB ultrasound, less than 14 weeks, transabdominal Date and time of exam: October 24, 2025, 2138 hours INDICATIONS: Bleeding, per vagina today, ultrasound October 21, 2025 empty intrauterine gestational sac Technique: Obstetrical ultrasound images less than 14 weeks performed via transabdominal imaging Findings: Uterus 9.9 cm Intrauterine gestational sac in the lower uterine segment no pole no cardiac activity Right ovary obscured by bowel gas Left ovary 3.7 cm arterial flow IMPRESSION: Spontaneous in progress, recommend short-term follow-up transvaginal pelvic sonography
--- NOTE | 2025-10-24 20:32 | PD.EDRME ---
Rapid Medical Screening Exam RME Arrival date/time: 10/24/25 19:35 This is a case of 39-year-old female with no medical history came in in the emergency room due to worsening vaginal bleeding patient was here 10/20/2025 where she was diagnosed to have incomplete 3 para 2 8 weeks Chief Complaint: Vaginal Bleeding Time Seen by Provider: 10/24/25 19:53 Vital signs: Vital Signs Temperature 98.1 F 10/24/25 20:26 Pulse Rate 90 10/24/25 20:26 Respiratory Rate 18 10/24/25 20:26 Blood Pressure 173/98 H 10/24/25 20:26 Pulse Oximetry (%) 99 10/24/25 20:26 Oxygen Delivery Method Room Air 10/24/25 20:26 Exam: Abdominal exam is benign nonsurgical no guarding no rebound no rigidity mild tenderness suprapubic area Clinical Impression: Incomplete
[2025-10-24] MEDS: ACETAMINOPHEN 325 MG TABLET 650 MG PO (21:08)
[2025-10-24 21:34] LABS: Collection Type, Urine Voided
[2025-10-24 21:35] LABS: Basophils # (Auto) 0.1 Thou/mm3 (0.0-0.2); Basophils % (Auto) 1 % (0-2.5); Eosinophils # (Auto) 0.1 Thou/mm3 (0.0-0.5); Eosinophils % (Auto) 1 % (0-10); Hematocrit 37.8 % (36.0-46.0); Hemoglobin 12.4 g/dL (12.0-16.0); Immature Granulocytes Auto 0.05 Thou/mm3 (0.00-0.00); Lymphocytes # (Auto) 3.0 Thou/mm3 (1.0-4.8); Lymphocytes % (Auto) 28 % (10-50); Mean Corpuscular HGB Conc 32.8 g/dl (31.0-37.0); Mean Corpuscular Hemoglobin 27.7 pg (25.0-35.0); Mean Corpuscular Volume 84 fL (80-100); Monocytes # (Auto) 0.8 Thou/mm3 (0.0-0.8); Monocytes % (Auto) 8 % (0-12); Neutrophils # (Auto) 6.8 Thou/mm3 (1.8-7.7); Neutrophils % (Auto) 63 % (37-80); Nucleated Red Blood Cell # 0.00 Thou/mm3 (0.00-0.00); Nucleated Red Blood Cell % 0 /100 WBC (0); Platelet Count 274 Thou/mm3 (140-440); RDW Standard Deviation 43.0 fL (36.4-46.3); Red Blood Count 4.48 Miln/mm3 (4.00-5.20); White Blood Count 10.9 Thou/mm3 (3.6-11.0)
[2025-10-24 21:53] LABS: Bilirubin,Urine Negative (Negative); Blood,Urine 3+ (Negative); Clarity,Urine Clear (Clear/Hazy); Color,Urine Lt-Yellow (Lt Yel-Yel); Glucose, Urine 4+ (Negative); Ketones,Urine Negative (Negative); Leukocyte Esterase,Urine Negative (Negative); Nitrite,Urine Negative (Negative); PH,Urine 6.0 (5.0-7.0); Protein,Urine Negative (Neg - Trace); RBC,Urine 275 /hpf (0-3); Specific Gravity,Urine 1.032 (1.001-1.035); Squamous Epithelial Cell,Urine 1 /hpf (0-5); Urobilinogen,Urine Negative mg/dL (0.0-1.0); WBC,Urine < 1 /hpf (0-5)
[2025-10-24 22:00] LABS: Alanine Aminotransferase 27 U/L (10-49); Albumin, Serum 4.7 gm/dL (3.5-5.0); Albumin/Globulin Ratio 1.5 (1.2-2.2); Alkaline Phosphatase 54 U/L (46-116); Anion Gap 10 (7-16); Aspartate Amino Transferase 27 U/L (0-34); BUN/Creatinine Ratio 13 Ratio (12-20); Bilirubin,Total 0.4 mg/dL (0.3-1.2); Blood Urea Nitrogen 9 mg/dL (9-23); Calcium 9.2 mg/dL (8.3-10.6); Calcium (Corrected) 9.2 mg/dL (8.5-10.1); Carbon Dioxide 23.1 mMol/L (20.0-31.0); Chloride 102 mMol/L (98-107); Creatinine (Component) 0.7 mg/dL (0.6-1.3); Estimated Creatinine Clearance 108.8 mL/min (>60); Globulin 3.1 gm/dL (2.3-3.5); Glucose 301 mg/dL (74-106); Osmolality,Calculated 279 (275-295); Potassium 3.9 mMol/L (3.4-5.1); Sodium 135 mMol/L (136-145); Total Protein 7.8 gm/dL (5.7-8.2); eGFR > 60 See Note
[2025-10-24 22:09] LABS: Beta HCG,Quantitative 2964 mIU/mL (<5.0)
[2025-10-25 00:32] VITALS: BP 151/85; PULSE 82; RESP 17; TEMP 37.1; O2SAT 100
--- NOTE | 2025-10-25 01:35 | PD.EDVAGBL ---
ED OB Contraction Preg RMI/HPI General Chief complaint: Vaginal Bleeding Stated complaint: VAGINAL BLEEDING Time Seen by Provider: 10/24/25 19:53 Arrival date/time: 10/24/25 19:35 Limitations: no limitations RME / HPI RME / HPI Narrative: 10/24/25 19:35 This is a case of 39-year-old female with no medical history came in in the emergency room due to worsening vaginal bleeding patient was here 10/20/2025 where she was diagnosed to have incomplete 3 para 2 8 weeks --------- Dr. Rogers's Main ED Evaluation: 40yo female presents to the ED for a chief complaint of worsening vaginal bleeding. Patient was seen here in the ED a few days ago and was told she was having a miscarriage. Patient has since had worsening vaginal bleeding, reporting she's now passing clots. Patient has a follow-up appointment with her BURRING MACHINE OPERATOR later today, but was concerned, so she came back in for further evaluation. Patient denies any abdominal cramping, N/V, dizziness, lightheadedness, fever, chills, or any other associated symptoms. NKA. Related Data Home Medications ?Medication ?Instructions ?Recorded ?Confirmed aspirin 81 mg chewable tablet 81 mg PO QDAY 01/23/21 03/17/21 (Aspirin Childrens) insulin lispro 100 unit/mL 15 unit subcut TID 01/23/21 03/17/21 subcutaneous pen insulin lispro 100 unit/mL 35 unit subcut HS 01/23/21 03/18/21 subcutaneous pen labetalol 200 mg tablet 200 mg PO BID 01/23/21 03/17/21 vitamin-ferrous fumarate 1 tab PO QDAY 01/23/21 03/17/21 28 mg iron-folic acid 800 mcg tablet ( Vitamins with Minerals) Previous Rx's ?Medication ?Instructions ?Recorded hydrocodone 5 mg-acetaminophen 325 1 tab PO Q8H PRN pain #7 tabs 03/20/21 mg tablet ibuprofen 400 mg tablet 400 mg PO Q6H PRN pain #14 tabs 03/20/21 Allergies Allergy/AdvReac Type Severity Reaction Status Date / Time No Known Allergies Allergy Verified 10/20/25 23:23 Review of Systems Review of Systems Systems Reviewed: All systems reviewed, normal except as documented Past Medical History Past Medical History NEUROLOGIC: Negative Neurological Disorders or Seizures CARDIAC: Positive Cardiac Disorders and Hypertension; Negative Congestive Heart Failure RESPIRATORY: Negative Chronic Obstructive Pulmonary Disease (COPD) GASTROINTESTINAL: Negative Gastrointestinal Disorders or Hepatitis GENITOURINARY: Negative Genitourinary Disorders or Renal Disease MUSCULOSKELETAL: Negative Musculoskeletal Disorders ENDOCRINE: Positive Endocrine Disorders and Diabetes Mellitus Type 2; Negative Diabetes Mellitus Type 1 HEMATOLOGIC: Negative Blood Disorders OTHER HISTORY: Positive Hospitalization and Chicken Pox; Negative Autoimmune Disease, Down Syndrome, Developmental Delay, Shingles, Falls, Blood Transfusions, Blood Transfusion Reaction, Anesthesia Reactions, MRSA, VRSA, Vancomycin-Resistant Enterococci, Human Immunodeficiency Virus (HIV), Measles, Mumps, Rubella (Turkish Measles), Pertussis, Clostridium Difficile or Cancer Family History FAMILY HISTORY: Positive Family Cardiac Disorders and Family Surgery; Negative Family Psychiatric Problems, Family Respiratory Disorders, Family Gastrointestinal Problems, Family Cancer or Family Anesthesia Reaction Surgical History SURGICAL: Positive Section Social History SMOKING STATUS: Never smoker ED Exam General Limitations: Present no limitations General appearance: Present alert and in no apparent distress Head Head exam: Present atraumatic Eye Eye exam: Present normal appearance, PERRL and EOMI ENT ENT exam: Present normal exam, normal oropharynx and mucous membranes moist Neck Neck exam: Present normal inspection, full ROM and trachea midline Chest Chest inspection: Present normal inspection and symmetric chest wall rise Respiratory Respiratory exam: Present normal lung sounds bilaterally Cardiovascular Cardiovascular exam: Present regular rate, normal rhythm and normal heart sounds Abdominal Exam Abdominal exam: Present soft External exam: Present other Speculum exam: Present vaginal bleeding and other (Minimal clots that are cleared. Os is closed. No products are noted. No oozing from the external os.) Bimanual exam: Absent cervical motion tenderness, adnexal tenderness or right adnexal tenderness Extremities Exam Extremities exam: Present normal inspection and full ROM Back Exam Back exam: Present normal inspection and full ROM Neurological Exam Neurological exam: Present alert, oriented X3 and CN II-XII intact Psychiatric Psychiatric exam: Present normal affect and normal mood Skin Skin exam: Present warm, dry, intact and normal color Course Quality Measures none Orders Category Date Time Status US OB <= 14 weeks fetus Stat Exams 10/24/25 20:31 Completed ABO/RH Type Stat Lab 10/24/25 21:20 Completed Beta HCG,Quantitative Stat Lab 10/24/25 21:20 Completed CBC Stat Lab 10/24/25 21:20 Completed CMP [Comprehensive Metabolic Panel] Stat Lab 10/24/25 21:20 Completed Urinalysis Stat Lab 10/24/25 20:53 Completed Acetaminophen Tab [Tylenol Tab] Med 10/24/25 21:00 Discontinued 650 mg PO X1 ONE HYDROcodone/APAP 10/325 [[place] 10/325] Med 10/25/25 01:50 Discontinued 1 tab PO X1 ONE Ondansetron Odt [Zofran Odt] Med 10/25/25 01:50 Discontinued 4 mg PO X1 ONE Vital Signs Vital signs: Vital Signs Temperature 98.1 F 10/24/25 20:26 Pulse Rate 90 10/24/25 20:26 Respiratory Rate 18 10/24/25 20: Blood Pressure 173/98 H 10/24/25 20: Pulse Oximetry (%) 99 10/24/25 20: Oxygen Delivery Method Room Air 10/24/25 20:26 Vaginal Bleeding MDM Narrative MDM Narrative: Scribe Attestation: 10/25/25 - Lindsay Keenan am scribing for and in the presence of Dr. Rogers. 40-year-old female presents emergency department by car with vaginal bleeding. She states that on she was told that she was having an impending miscarriage. She started spotting today and changed her pad multiple times. She is not having dizziness or abdominal cramping at this time. She just wanted to make sure that the baby is out . The patient is no longer having cramping at this time. She states that her brother on Friday and was unable to travel to [place] and that is making her very sad. Patient is hemodynamically stable at this time. Patient data External records reviewed:: [facility] previous records (Per chart review, patient was seen here on 10/20/25 for incomplete .) Clinical information provided by:: patient Social determinants that could affect healthcare access:: none Patient has the following chronic illnesses:: HTN How is presenting disease/condition affected by chronic disease/condition?: uneffected by Evaluation data The following diagnostics were reviewed and interpreted by me:: lab results and radiology exam(s) Lab and/or radiology exams considered but not ordered:: none Interpretation Summary: WBC normal, HnH 12.4/37.8, Plt 274, Glucose 301, Beta HCG 2964. UA remarkable for 4+ glucose, 3+ blood, and 275 RBCs. [facility] Report Signed Patient: KAVIN GUADARRAMA Record#: [id number] Birthdate: 1985 Age/Sex: 39 / F Location: [facility] Attending Dr: Ordering Physician: Karine Boss Date of Service: 10/24/25 Procedure(s): US OB <= 14 weeks fetus Accession Number(s): [id number] cc: Lety Huerta [facility]; Kurt Walker MD; Karine Boss~ Examination: Complete OB ultrasound, less than 14 weeks, transabdominal Date and time of exam: October 24, 2025, 2137 hours INDICATIONS: Bleeding, per vagina today, ultrasound October 21, 2025 empty intrauterine gestational sac Technique: Obstetrical ultrasound images less than 14 weeks performed via transabdominal imaging Findings: Uterus 9.9 cm Intrauterine gestational sac in the lower uterine segment no pole no cardiac activity Right ovary obscured by bowel gas Left ovary 3.7 cm arterial flow IMPRESSION: Spontaneous in progress, recommend short-term follow-up transvaginal pelvic sonography Dictated By: Kurt Walker MD Signed By: <Electronically signed by Kurt Walker MD in OV> 10/24/25 2223 Medications / Prescriptions Medications or Prescriptions considered but not ordered:: none Medication administrations:: Medication Administration History Discontinued Medications Acetaminophen (Acetaminophen 325 Mg Tablet) 650 mg PO X1 ONE Stop: 10/24/25 21:01 Last Admin: 10/24/25 21:08 Dose: 650 mg Documented By: DWAIN Hydrocodone Bitart/Acetaminophen (Hydrocodone/Apap 10/325 Tab) 1 tab PO X1 ONE Stop: 10/25/25 01:51 Last Admin: 10/25/25 02:10 Dose: 1 tab Documented By: RUCHI Ondansetron HCl (Ondansetron Odt 4 Mg Tabrap) 4 mg PO X1 ONE; Protocol Stop: 10/25/25 01:51 Last Admin: 10/25/25 02:10 Dose: 4 mg Documented By: RUCHI see above Consultations Consultation(s) initiated? (list below): No Diagnosis Vaginal Bleeding Differential Diagnosis: threatened , dysfunctional uterine bleeding and incomplete Most likely diagnosis given after review of the tests above:: see clinical impression below Admission Indicated Admission indicated?: not indicated Admission Request Was there a request for admission?: No Disposition Plan Disposition Plan: Discharge Discharge Attestation Discharge Attestation: The patient and all family members were given an opportunity to ask questions and understood the discharge instructions. Discharge instructions specifically effects, indications for sooner follow up or return to the emergency department, and the expected course of current diagnosis. Patient condition: Stable Discharge Plan Plan Patient Disposition: HOME (Self Care) Patient condition on transfer: Stable Prescriptions/Referrals Prescriptions/Med Rec: No Action labetalol 200 mg Tablet 200 mg PO BID vit-iron fum-folic ac [ Vitamin with Minerals] 28 mg iron- 800 mcg Tablet 1 tab PO QDAY aspirin [Aspirin Childrens] 81 mg Tablet,Chewable 81 mg PO QDAY insulin lispro 100 unit/mL Insulin Pen 35 unit SUBCUT HS insulin lispro 100 unit/mL Insulin Pen 15 unit SUBCUT TID Rx Instructions: TAKE BEFORE MEALS hydrocodone-acetaminophen 5-325 mg tablet 1 tab PO Q8H MDD 4 PRN (Reason: pain) Qty: 7 0RF ibuprofen 400 mg tablet 400 mg PO Q6H MDD 6 PRN (Reason: pain) Qty: 14 0RF Referrals: Lety Huerta NP [Primary Care Provider] - In 1 week Problem List Clinical Impression: Complete , Vaginal bleeding Patient/Caregiver Discharge Instructions Education Materials: ED MISCARRIAGE Completed Additional Instructions: Based on the history that we talked about it appears you most likely miscarried and passed fetus. Please follow-up with your BURRING MACHINE OPERATOR today as scheduled. They will most likely do another office ultrasound in the office to make sure there are no other retained products. Please return to the emergency department before your appointment if you are having dizziness, cramping, you or changing your pad more than 2-3 times in 1 hour x 2 to 3 hours, or any other concerns. Print Language: Burkinan Stand Alone Forms: [facility]aina Award Info., Patient Portal Info Letter
[2025-10-25] MEDS: ONDANSETRON ODT 4 MG TABRAP PO (02:10)
[2025-10-25 02:11] VITALS: BP 153/96; PULSE 88; RESP 13; TEMP 37; O2SAT 98
== END 2025-10-25 03:16 | disposition home or self-care (01) ==
PROVIDERS: Nurse Practitioner Family; Emergency Provider Emergency Medicine
DX: O03.4 Incomplete spontaneous abortion without complication (principal)
CPT/HCPCS: 36415; 76801; 80053; 81001; 84702; 85025; 86900; 86901; 99283; Q0162; A9270

== ENCOUNTER → 2025-11-11 | Outpatient (CLI) | payer MEDICAID, SELFPAY ==
--- NOTE | 2025-11-11 10:48 | XR_ITS ---
Examination: OB Transvaginal ultrasound of the pelvis, complete Technique: Transvaginal sonographic images pelvis performed using peña scale imaging Exam date and time: November 11, 2025, 1205 hours INDICATIONS: Pelvic sonogram October 24, 2025 spontaneous in progress, vaginal bleeding 3 weeks FINDINGS: Uterus 8.5 cm Retained products of conception in the body of the uterus measuring up to 2.3 mm in thickness Right ovary 2.4 cm arterial flow Left paravesicular by bowel gas IMPRESSION: Positive for retained products of conception.
== END | disposition home or self-care (01) ==
LOC: CDIM 10:39
DX: O02.1 Missed abortion (principal)
CPT/HCPCS: 76817